=== PATIENT | female | born 1935 ===

== ENCOUNTER 2020-04-24 07:50 | Outpatient (CLI) | payer OTHER ==
[2020-04-29] MEDS ORDERED: LEVOXYL112 MCG PO (11:00)
[2020-04-29] MEDS ORDERED: AVAPRO300 MG PO (11:01)
[2020-04-29] MEDS ORDERED: HYDRODIURIL12.5 MG PO (11:02)
[2020-04-29] MEDS ORDERED: PROTONIX PO (11:03)
[2020-04-29] MEDS ORDERED: HYOSCYAMINE0.125 M1 SL (11:03)
== END 2020-04-24 15:00 | disposition home or self-care (01) ==
LOC: LAB 07:50
PROVIDERS: ATTEND Anesthesiology Pain Medicine
DX: M50.220 Other cervical disc displacement, mid-cervical region, unspecified level (principal); Z20.828 Contact with and (suspected) exposure to other viral communicable diseases; I10 Essential (primary) hypertension; M54.40 Lumbago with sciatica, unspecified side; Z01.811 Encounter for preprocedural respiratory examination; Z01.810 Encounter for preprocedural cardiovascular examination; Z01.812 Encounter for preprocedural laboratory examination

== ENCOUNTER 2020-05-01 05:54 | Day surgery (SDC) | payer OTHER ==
[~2020-05-01 05:54] MED LIST: AVAPRO300 MG PO; HYDRODIURIL12.5 MG PO; HYOSCYAMINE0.125 M1 SL; LEVOXYL112 MCG PO; PROTONIX PO
== END 2020-05-01 11:35 | disposition home or self-care (01) ==
LOC: CIR.AMB 05:54
PROVIDERS: ATTEND Anesthesiology Pain Medicine
DX: M50.223 Other cervical disc displacement at C6-C7 level (principal)